=== PATIENT | female | born 1980 | race African-American/Black ===

== ENCOUNTER 2016-10-18 14:46 | Emergency (ER) | payer MEDICAID ==
[~2016-10-18] VITALS: Ht 160 cm; Wt 70.5 kg
[~2016-10-18 14:46] MED LIST: IBUP600 PO; MMW SWISH-SPIT; OXYC1SOL5 PO; PENI250T59 PO; TRAM50 PO
[2016-10-18 14:48] VITALS: BP 128/80; PULSE 106; RESP 20; TEMP 99.3; O2SAT 98
--- NOTE | 2016-10-18 16:12 | PD ---
Physical Exam Date Seen by Provider: Oct 18, 2016 Time Seen by Provider: 16:12 Data Data Last Documented VS Vital Signs Date Time Temp Pulse Resp B/P Pulse Ox O2 Delivery O2 Flow Rate FiO2 10/18/16 14:48 99.3 106 20 128/80 98 Room Air Orders Ed Poc Ultrasound (10/18/16 15:39) Lidocai-Epi 1%-1:100,000 Inj (Xylocaine- (10/18/16 16:15) Abscess Culture And Gram Stain (10/18/16 16:16) MDM Supervised Visit with SHARLENE: No Narrative Course Dr. Winters initially evaluated this patient. Please see his note for full H&P. I was asked by Dr. Winters to evaluate this patient's abdominal wall abscess. On my exam of the nontoxic-appearing black female in no acute distress. There is an indurated area in the right upper quadrant abdominal wall which measures about 5-6 cm in diameter. It is fluctuant but there is no pointing or drainage. There is a zone of inflammation around it but no lymphangitis. Abscess I&D was performed. Please let procedure note for details. Dr. Winters retains care of this patient. Please see his note for disposition. Procedures Procedure Narrative INCISION AND DRAINAGE OF ABSCESS: The area was prepped and was sterilely draped. A subcutaneous wheal of 1 % Xylocaine with epi with a total number 3 mL was used to anesthetize the area properly. A number 11 scalpel was used to make a 1.25-cm incision across the area of the abscess. The abscess was drained , complex loculations were broken down, and irrigated with normal saline. Cultures were obtained. Quarter inch iodoform packing was placed in the wound. Sterile dressing applied. Patient advised to have packing removed in two days. Scripts Sulfamethoxazole-Trimethoprim (Bactrim DS)800-160 Mg Tab2 Tab PO BID 7 Days Ref 0 Prov:Raimundo Winters MD 10/18/16 Cori Figueroa Oct 18, 2016 16:12
--- NOTE | 2016-10-18 16:12 | PD ---
HPI Chief Complaint: Bite or Sting Time Seen by Provider: 16:07 Travel History International Travel<30 days: No Contact w/Intl Traveler<30days: No Traveled to known affect area: No History of Present Illness HPI Patient 36-year-old female presents emergency Department with redness and swelling to the right lower quadrant of the abdomen for the past few days. Patient denies any nausea vomiting diarrhea constipation changes in bowel habits vaginal bleeding or vaginal discharge. Patient states that she thinks she was bit by a spider. States symptoms been gradually worsening. States symptoms are moderate in nature. PFSH Past Medical History Anxiety: Yes Diminished Hearing: No Hepatitis: No Immunizations Current: Yes ?: Not LMP: 10/05/2016 : 5 Para: 2 Miscarriage: 2 : 1 Past Surgical History Section: Yes (X2) Other Surgery: Yes (C SECT) Social History Alcohol Use: No Tobacco Use: No Substance Use: No Allergies-Medications (Allergen,Severity, Reaction): Coded Allergies: No Known Allergies (Verified , 10/18/16) Reported Meds & Prescriptions Reported Meds & Active Scripts Active Bactrim DS (Sulfamethoxazole-Trimethoprim) 800-160 Mg Tab 2 Tab PO BID 7 Days Oxycodone/Acetaminophen 5-325 mg/5Ml (Oxycodone W/ Acetaminophen) 5 mg/325 mg Tab 1-2 Tab PO Q4H PRN Motrin 600 Mg Tab (Ibuprofen) 600 Mg Tab 600 Mg PO Q6H PRN Magic Mouthwash-Diphenhy Formula (Lidocaine/Diphenhydr/Alum/Mg/Simeth) Ml 10 Ml SWISH-SPIT Q2HR MAGIC MOUTHWASH CONTAINS 1/3 VISCOUS LIDOCAINE,1/3 MAALOX, AND 1/3 BENADRYL. Ultram (Tramadol HCl) 50 Mg Tab 50 Mg PO Q6H PRN FOR PAIN Penicillin Vk (Penicillin V Potassium) 250 Mg Tab 500 Mg PO Q6 10 Days Review of Systems Except as stated in HPI: all other systems reviewed are Neg Physical Exam Narrative GENERAL: Well-nourished, well-developed patient. SKIN: The right lower quadrant of the abdomen has a very well demarcated area of erythema consistent with erysipelas however there is a centralized head which does have some mild fluctuance underneath it. This consistent with an abscess with surrounding cellulitis. HEAD: Normocephalic. EYES: No scleral icterus. No injection or drainage. NECK: Supple, trachea midline. No JVD or lymphadenopathy. CARDIOVASCULAR: Regular rate and rhythm without murmurs, gallops, or rubs. RESPIRATORY: Breath sounds equal bilaterally. No accessory muscle use. GASTROINTESTINAL: Abdomen soft, non-tender, nondistended. MUSCULOSKELETAL: No cyanosis, or edema. BACK: Nontender without obvious deformity. No CVA tenderness. Data Data Last Documented VS Vital Signs Date Time Temp Pulse Resp B/P Pulse Ox O2 Delivery O2 Flow Rate FiO2 10/18/16 14:48 99.3 106 20 128/80 98 Room Air Orders Ed Poc Ultrasound (10/18/16 15:39) Lidocai-Epi 1%-1:100,000 Inj (Xylocaine- (10/18/16 16:15) Abscess Culture And Gram Stain (10/18/16 16:16) MDM Medical Decision Making Medical Screen Exam Complete: Yes Emergency Medical Condition: Yes Differential Diagnosis Erysipelas, abscess, cellulitis. Sepsis is highly unlikely excluded clinically. Narrative Course Patient was roomed emergency department, and ultrasound reveals an uncomfortable did abscess. She underwent I&D by Cori Figueroa cultures were obtained the patient will be discharged on antibiotics. Discussed symptomatically management returned ED criteria. Procedures Procedure Narrative Ultrasound soft tissue: Patient has cobblestoning on her right abdomen this with an associated 1 x 2 x 2 cm fluid collection in the center consistent with an abscess. Amenable to ER drainage. Diagnosis Primary Impression: Abscess Additional Instructions: Take the packing out in 48 hours, if the swelling or redness worsens use start having fevers nausea vomiting please return to the emergency department to have it checked. If there is any concerns at all he can return to the department in 48 hours to have us look at it. Med/Other Pt SpecificInfo: Prescription(s) given Scripts Sulfamethoxazole-Trimethoprim (Bactrim DS)800-160 Mg Tab2 Tab PO BID 7 Days Ref 0 Prov:Raimundo Winters MD 10/18/16 Disposition: 01 DISCHARGE HOME Condition: Stable Raimundo Winters MD Oct 18, 2016 16:12
[2016-10-18] MEDS ORDERED: BACT800T5 PO (16:13)
[2016-10-18] MEDS ORDERED: LIDOCAINE 1%/EPINEPHrine 1:100,000 SOLN 20 ML VIAL INFIL ONE (16:15)
== END 2016-10-18 16:39 | disposition home or self-care (01) ==
LOC: NEPD 14:46
DX: L02.211 Cutaneous abscess of abdominal wall (principal); B95.61 Methicillin susceptible Staphylococcus aureus infection as the cause of diseases classified elsewhere
CPT/HCPCS: 10061; 86403; 87070; 87186; 87205

== ENCOUNTER 2016-10-29 09:04 | Emergency (ER) | payer MEDICAID ==
[~2016-10-29] VITALS: Ht 160 cm; Wt 70.0 kg
[~2016-10-29 09:04] MED LIST changes: +BACT800T5 PO
[2016-10-29 09:07] VITALS: BP 135/77; PULSE 84; RESP 16; TEMP 98.8; O2SAT 99
--- NOTE | 2016-10-29 09:14 | PD ---
HPI . Recheck on abscess of abdomen Chief Complaint: Medical Clearance Time Seen by Provider: 09:13 Travel History International Travel<30 days: No Contact w/Intl Traveler<30days: No Traveled to known affect area: No History of Present Illness HPI 36-year-old female who recently had an abscess drained on October 18 that was found to be positive for MRSA here for recheck. Patient said she received a phone call was told to follow-up with primary care doctor, which she does not have. She decided to come to the emergency department to have a recheck to make sure she took the right antibiotics and everything looks good. She says the area is well healed and she has no complaints. 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 Ultram (Tramadol HCl) 50 Mg Tab 50 Mg PO Q6H PRN FOR PAIN Penicillin Vk (Penicillin V Potassium) 250 Mg Tab 500 Mg PO Q6 10 Days Review of Systems General / Constitutional: No: Fever Eyes: No: Visual changes HENT: No: Headaches Cardiovascular: No: Chest Pain or Discomfort Respiratory: No: Shortness of Breath Gastrointestinal: No: Abdominal Pain Genitourinary: No: Dysuria Musculoskeletal: No: Pain Skin: No Rash Neurologic: No: Weakness Psychiatric: No: Depression Endocrine: No: Polydipsia Hematologic/Lymphatic: No: Easy Bruising Physical Exam Narrative GENERAL: AAO x 3, no acute distress, Well-nourished, well-developed patient. SKIN: Warm and dry. No visible rashes or bruising. Right lower abdomen abscess resolved. No evidence of erythema, edema, fluid collection or drainage. HEAD: Normocephalic and atraumatic. EYES: No scleral icterus. No injection or drainage. ENT: No nasal drainage noted. Mucous membranes pink. Airway patent. NECK: Supple, trachea midline. No JVD. CARDIOVASCULAR: Regular rate and rhythm without murmurs, gallops, or rubs. RESPIRATORY: Breath sounds equal bilaterally. No accessory muscle use. No rhonchi or rales. GASTROINTESTINAL: Abdomen soft, non-tender, nondistended. EXTREMITIES: No cyanosis or edema. BACK: Nontender without obvious deformity. No CVA tenderness. PSYCH: AAO x 3, normal affect. Data Data Last Documented VS Vital Signs Date Time Temp Pulse Resp B/P Pulse Ox O2 Delivery O2 Flow Rate FiO2 10/29/16 09:07 98.8 84 16 135/77 99 MDM Medical Decision Making Medical Screen Exam Complete: Yes Emergency Medical Condition: Yes Medical Record Reviewed: Yes Differential Diagnosis resolved abscess, cellulitis, less likely sepsis Narrative Course 36-year-old female who recently had an abscess drained on October 18 that was found to be positive for MRSA here for recheck. Patient said she received a phone call was told to follow-up with primary care doctor, which she does not have. She decided to come to the emergency department to have a recheck to make sure she took the right antibiotics and everything looks good. She says the area is well healed and she has no complaints. Patient seen and examined. The area is completed resolved and healed. No further workup or treatment indicated. Diagnosis Primary Impression: Abscess Patient Instructions: General Instructions Additional Instructions: Please establish with a primary care provider locally. Disposition: 01 DISCHARGE HOME Condition: Stable Madelyn Linton October 29, 2016 09:14
== END 2016-10-29 09:23 | disposition home or self-care (01) ==
LOC: NEPK 09:04
DX: Z09 Encounter for follow-up examination after completed treatment for conditions other than malignant neoplasm (principal); L02.211 Cutaneous abscess of abdominal wall; B95.62 Methicillin resistant Staphylococcus aureus infection as the cause of diseases classified elsewhere
CPT/HCPCS: 99282

== ENCOUNTER 2017-09-30 09:31 | Emergency (ER) | payer SELFPAY ==
[2017-09-30 09:41] VITALS: BP 120/63; PULSE 71; RESP 16; TEMP 98.7; O2SAT 99
[2017-09-30] MEDS ORDERED: ONDANSETRON ODT 4 MG TAB PO ONE (11:30)
[2017-09-30] MEDS ORDERED: PROCHCT RECTAL (11:33)
--- NOTE | 2017-09-30 11:40 | PD ---
HPI Chief Complaint: Pain: Acute or Chronic Time Seen by Provider: 11:17 Travel History International Travel<30 days: No Contact w/Intl Traveler<30days: No Traveled to known affect area: No History of Present Illness HPI The patient was seen and examined in the presence of the nurse. This patient complains of hemorrhoid pain and irritation. Duration 1 week. Severity is moderate. They are not bleeding. She also complains of nausea. No vomiting or diarrhea or fever. She is not having abdominal pain. No alleviating factors. No exacerbating factors PFSH Past Medical History Anxiety: Yes Diminished Hearing: No Hepatitis: No Immunizations Current: Yes : 5 Para: 2 Miscarriage: 2 : 1 Past Surgical History Section: Yes (X2) Other Surgery: Yes (C SECT) Social History Alcohol Use: No Tobacco Use: No Substance Use: No Allergies-Medications (Allergen,Severity, Reaction): Coded Allergies: *MDRO Multi-Drug Resistant Organism (Verified Adverse Reaction, Unknown, ) MRSA (abdomen)-10/18/16 Reported Meds & Prescriptions Reported Meds & Active Scripts Active Proctofoam Hc Rectal (Hydrocortisone/Pramoxine) 1-1% Foam 1 Applic RECTAL Q8H PRN Review of Systems General / Constitutional: No: Fever Eyes: No: Visual changes HENT: No: Headaches Cardiovascular: No: Chest Pain or Discomfort Respiratory: No: Shortness of Breath Gastrointestinal: Positive: Nausea, No: Abdominal Pain Genitourinary: No: Dysuria Musculoskeletal: No: Pain Skin: No Rash Neurologic: No: Weakness Psychiatric: No: Depression Endocrine: No: Polydipsia Hematologic/Lymphatic: No: Easy Bruising Physical Exam Narrative GENERAL: Well-nourished, well-developed patient in no apparent distress. SKIN: Focused skin assessment reveals no rash and nodules. Skin is Warm and dry. HEAD: Atraumatic. Normocephalic. EYES: Pupils equal and round. No scleral icterus. No injection or drainage. ENT: No nasal bleeding or discharge. Mucous membranes pink and moist. NECK: Trachea midline. No JVD. CARDIOVASCULAR: Regular rate and rhythm. No murmur appreciated. RESPIRATORY: No accessory muscle use. Clear to auscultation. Breath sounds equal bilaterally. GASTROINTESTINAL: Abdomen soft, non-tender, nondistended. Hepatic and splenic margins not palpable. MUSCULOSKELETAL: No obvious deformities. No clubbing. No cyanosis. No edema. NEUROLOGICAL: Awake and alert. No obvious cranial nerve deficits. Motor grossly within normal limits. Normal speech. PSYCHIATRIC: Appropriate mood and affect; insight and judgment normal. Rectal: Has prominent external hemorrhoids but no active bleeding or sign of infection Data Data Last Documented VS Vital Signs Date Time Temp Pulse Resp B/P (MAP) Pulse Ox O2 Delivery O2 Flow Rate FiO2 09/30/17 09:41 98.7 71 16 120/63 (82) 99 Orders Orders Ed Urine Pregnancytest Poc (09/30/17 11:29) Ondansetron Odt (Zofran Odt) (09/30/17 11:30) MDM Medical Decision Making Medical Screen Exam Complete: Yes Emergency Medical Condition: Yes Medical Record Reviewed: Yes Differential Diagnosis Hemorrhoid, GI bleed, ectopic Narrative Course I have reviewed the patient's electronic medical record. Patient was here last year for abscess I&D which grew MRSA Today she has painful and annoying external hemorrhoids. No active bleeding. I prescribed Proctofoam to use as needed Discussed that she can follow-up with colorectal physicians if desired or gets no improvement from this Gave her dose of Zofran Urine is negative Diagnosis Primary Impression: External hemorrhoids Additional Impression: Nausea Additional Instructions: The patient was advised to follow up with their physician and return if they worsen. Med/Other Pt SpecificInfo: Prescription(s) given Scripts Hydrocortisone-Pramoxine Rectal (Proctofoam Hc Rectal) 1-1% Foam 1 APPLIC RECTAL Q8H Y for ITCHING/INFLAMMATION, #1 CAN 0 Refills Prov: Nael Bhat MD 09/30/17 Disposition: 01 DISCHARGE HOME Condition: Stable Nael Bhat MD Sep 30, 2017 11:40
== END 2017-09-30 12:19 | disposition home or self-care (01) ==
LOC: NEPD 09:31
DX: K64.4 Residual hemorrhoidal skin tags (principal); R11.0 Nausea; F41.9 Anxiety disorder, unspecified
CPT/HCPCS: 84703; 99283